=== PATIENT | male | born 1955 | race Two or more races ===

== ENCOUNTER 2016-04-22 11:24 | Outpatient (CLI) | payer MEDICARE | END 2016-04-22 23:59 | disposition home or self-care (01) | LOC: WOU 11:24 | PROVIDERS: ATTEND Podiatrist Foot & Ankle Surgery | DX: E11.610 Type 2 diabetes mellitus with diabetic neuropathic arthropathy (principal); B35.1 Tinea unguium; L85.3 Xerosis cutis; E11.42 Type 2 diabetes mellitus with diabetic polyneuropathy; I10 Essential (primary) hypertension; M20.42 Other hammer toe(s) (acquired), left foot; B35.3 Tinea pedis | CPT/HCPCS: G0463 ==

== ENCOUNTER 2016-07-27 11:00 | Outpatient (CLI) | payer MEDICARE | END 2016-07-27 23:59 | disposition home or self-care (01) | LOC: WOU 11:00 | PROVIDERS: ATTEND Podiatrist Foot & Ankle Surgery | DX: E11.610 Type 2 diabetes mellitus with diabetic neuropathic arthropathy (principal); E11.42 Type 2 diabetes mellitus with diabetic polyneuropathy; L84 Corns and callosities; B35.1 Tinea unguium; M20.42 Other hammer toe(s) (acquired), left foot; I10 Essential (primary) hypertension; S90.12 Contusion of lesser toe without damage to nail; X58.XXXD Exposure to other specified factors, subsequent encounter | CPT/HCPCS: A6402; G0463 ==

== ENCOUNTER 2016-12-07 10:06 | Outpatient (CLI) | payer MEDICARE | END 2016-12-07 23:59 | disposition home or self-care (01) | LOC: WOU 10:06 | PROVIDERS: ATTEND Podiatrist Foot & Ankle Surgery | DX: E11.621 Type 2 diabetes mellitus with foot ulcer (principal); L97.413 Non-pressure chronic ulcer of right heel and midfoot with necrosis of muscle; E11.610 Type 2 diabetes mellitus with diabetic neuropathic arthropathy; E11.42 Type 2 diabetes mellitus with diabetic polyneuropathy; L03.115 Cellulitis of right lower limb; Z87.891 Personal history of nicotine dependence; I10 Essential (primary) hypertension; Z79.899 Other long term (current) drug therapy; M20.42 Other hammer toe(s) (acquired), left foot; R60.0 Localized edema | CPT/HCPCS: 11043; 87070; 87075; 87077; A6209 ×2; A6402 ==

== ENCOUNTER 2016-12-30 10:30 | Outpatient (CLI) | payer MEDICARE | END 2016-12-30 23:59 | disposition home or self-care (01) | LOC: WOU 10:30 | PROVIDERS: ATTEND Podiatrist Foot & Ankle Surgery | DX: E11.621 Type 2 diabetes mellitus with foot ulcer (principal); E11.610 Type 2 diabetes mellitus with diabetic neuropathic arthropathy; E11.42 Type 2 diabetes mellitus with diabetic polyneuropathy; L97.411 Non-pressure chronic ulcer of right heel and midfoot limited to breakdown of skin; R60.0 Localized edema; M20.42 Other hammer toe(s) (acquired), left foot | CPT/HCPCS: 11042; A6209; A6402 ==

== ENCOUNTER 2017-01-04 11:15 | Outpatient (CLI) | payer MEDICARE | END 2017-01-04 23:59 | disposition home or self-care (01) | LOC: WOU 11:15 | PROVIDERS: ATTEND Podiatrist Foot & Ankle Surgery | DX: E11.621 Type 2 diabetes mellitus with foot ulcer (principal); L97.411 Non-pressure chronic ulcer of right heel and midfoot limited to breakdown of skin; E11.610 Type 2 diabetes mellitus with diabetic neuropathic arthropathy; E11.42 Type 2 diabetes mellitus with diabetic polyneuropathy; M20.42 Other hammer toe(s) (acquired), left foot; B35.3 Tinea pedis; B35.1 Tinea unguium | CPT/HCPCS: 11042; A6402; A6209 ==

== ENCOUNTER 2017-01-20 10:45 | Outpatient (CLI) | payer MEDICARE | END 2017-01-20 23:59 | disposition home or self-care (01) | LOC: WOU 10:45 | PROVIDERS: ATTEND Podiatrist Foot & Ankle Surgery | DX: E11.621 Type 2 diabetes mellitus with foot ulcer (principal); E11.610 Type 2 diabetes mellitus with diabetic neuropathic arthropathy; E11.42 Type 2 diabetes mellitus with diabetic polyneuropathy; L97.412 Non-pressure chronic ulcer of right heel and midfoot with fat layer exposed; R60.0 Localized edema; M20.42 Other hammer toe(s) (acquired), left foot; Z79.899 Other long term (current) drug therapy | CPT/HCPCS: 11042; A6402 ==

== ENCOUNTER 2017-01-25 10:40 | Outpatient (CLI) | payer MEDICARE | END 2017-01-25 23:59 | disposition home or self-care (01) | LOC: WOU 10:40 | PROVIDERS: ATTEND Podiatrist Foot & Ankle Surgery | DX: E11.621 Type 2 diabetes mellitus with foot ulcer (principal); L97.412 Non-pressure chronic ulcer of right heel and midfoot with fat layer exposed; E11.42 Type 2 diabetes mellitus with diabetic polyneuropathy; E11.610 Type 2 diabetes mellitus with diabetic neuropathic arthropathy; M20.42 Other hammer toe(s) (acquired), left foot | CPT/HCPCS: 11042; A6402 ==

== ENCOUNTER 2017-02-01 11:42 | Outpatient (CLI) | payer MEDICARE | END 2017-02-01 23:59 | disposition home or self-care (01) | LOC: WOU 11:42 | PROVIDERS: ATTEND Podiatrist Foot & Ankle Surgery | DX: E11.621 Type 2 diabetes mellitus with foot ulcer (principal); E11.610 Type 2 diabetes mellitus with diabetic neuropathic arthropathy; E11.42 Type 2 diabetes mellitus with diabetic polyneuropathy; L97.412 Non-pressure chronic ulcer of right heel and midfoot with fat layer exposed; I10 Essential (primary) hypertension; M20.42 Other hammer toe(s) (acquired), left foot | CPT/HCPCS: 15275; A6402 ==

== ENCOUNTER 2017-02-15 11:15 | Outpatient (CLI) | payer MEDICARE | END 2017-02-15 23:59 | disposition home or self-care (01) | LOC: WOU 11:15 | PROVIDERS: ATTEND Podiatrist Foot & Ankle Surgery | DX: E11.621 Type 2 diabetes mellitus with foot ulcer (principal); L97.412 Non-pressure chronic ulcer of right heel and midfoot with fat layer exposed; E11.610 Type 2 diabetes mellitus with diabetic neuropathic arthropathy; E11.42 Type 2 diabetes mellitus with diabetic polyneuropathy; M20.42 Other hammer toe(s) (acquired), left foot; R60.0 Localized edema | CPT/HCPCS: 15275; A6402; Q4132 ==

== ENCOUNTER 2017-02-21 11:19 | Outpatient (CLI) | payer MEDICARE ==
[~2017-02-21 11:19] MED LIST: SILVER SULFADIAZINE CREAM 25 GM TUBE ONE
== END 2017-02-21 23:59 | disposition home or self-care (01) ==
LOC: WOU 11:19
PROVIDERS: ATTEND Podiatrist Foot & Ankle Surgery
DX: E11.621 Type 2 diabetes mellitus with foot ulcer (principal); L97.415 Non-pressure chronic ulcer of right heel and midfoot with muscle involvement without evidence of necrosis; E11.610 Type 2 diabetes mellitus with diabetic neuropathic arthropathy; E11.42 Type 2 diabetes mellitus with diabetic polyneuropathy; Z79.4 Long term (current) use of insulin
CPT/HCPCS: 11043; A6402

== ENCOUNTER 2017-03-07 11:00 | Outpatient (CLI) | payer MEDICARE | END 2017-03-07 23:59 | disposition home or self-care (01) | LOC: WOU 11:00 | PROVIDERS: ATTEND Podiatrist Foot & Ankle Surgery | DX: E11.621 Type 2 diabetes mellitus with foot ulcer (principal); L97.415 Non-pressure chronic ulcer of right heel and midfoot with muscle involvement without evidence of necrosis; E11.42 Type 2 diabetes mellitus with diabetic polyneuropathy; E11.610 Type 2 diabetes mellitus with diabetic neuropathic arthropathy; Z79.899 Other long term (current) drug therapy | CPT/HCPCS: 15275; A6402; Q4133 ×2 ==

== ENCOUNTER 2017-03-14 11:14 | Outpatient (CLI) | payer MEDICARE | END 2017-03-14 23:59 | disposition home or self-care (01) | LOC: WOU 11:14 | PROVIDERS: ATTEND Podiatrist Foot & Ankle Surgery | DX: E11.621 Type 2 diabetes mellitus with foot ulcer (principal); L97.415 Non-pressure chronic ulcer of right heel and midfoot with muscle involvement without evidence of necrosis; E11.42 Type 2 diabetes mellitus with diabetic polyneuropathy; E11.610 Type 2 diabetes mellitus with diabetic neuropathic arthropathy; M20.42 Other hammer toe(s) (acquired), left foot | CPT/HCPCS: 15275; A6402 ==

== ENCOUNTER 2017-03-21 11:35 | Outpatient (CLI) | payer MEDICARE | END 2017-03-21 23:59 | disposition home or self-care (01) | LOC: WOU 11:35 | PROVIDERS: ATTEND Podiatrist Foot & Ankle Surgery | DX: E11.621 Type 2 diabetes mellitus with foot ulcer (principal); L97.412 Non-pressure chronic ulcer of right heel and midfoot with fat layer exposed; E11.42 Type 2 diabetes mellitus with diabetic polyneuropathy; E11.610 Type 2 diabetes mellitus with diabetic neuropathic arthropathy | CPT/HCPCS: 11042; A6402 ==

== ENCOUNTER 2017-03-28 11:10 | Outpatient (CLI) | payer MEDICARE | END 2017-03-28 23:59 | disposition home or self-care (01) | LOC: WOU 11:10 | PROVIDERS: ATTEND Podiatrist Foot & Ankle Surgery | DX: E11.621 Type 2 diabetes mellitus with foot ulcer (principal); L97.412 Non-pressure chronic ulcer of right heel and midfoot with fat layer exposed; E11.610 Type 2 diabetes mellitus with diabetic neuropathic arthropathy; E11.42 Type 2 diabetes mellitus with diabetic polyneuropathy; M20.42 Other hammer toe(s) (acquired), left foot | CPT/HCPCS: 11042; A6402 ×2 ==

== ENCOUNTER 2017-04-04 11:00 | Outpatient (CLI) | payer MEDICARE | END 2017-04-04 23:59 | disposition home or self-care (01) | LOC: WOU 11:00 | PROVIDERS: ATTEND Specialist | DX: E11.621 Type 2 diabetes mellitus with foot ulcer (principal); L97.412 Non-pressure chronic ulcer of right heel and midfoot with fat layer exposed; E11.42 Type 2 diabetes mellitus with diabetic polyneuropathy; E11.610 Type 2 diabetes mellitus with diabetic neuropathic arthropathy; I10 Essential (primary) hypertension | CPT/HCPCS: A6402; G0463 ==

== ENCOUNTER 2017-04-18 11:23 | Outpatient (CLI) | payer MEDICARE | END 2017-04-18 23:59 | disposition home or self-care (01) | LOC: WOU 11:23 | PROVIDERS: ATTEND Specialist | DX: E11.610 Type 2 diabetes mellitus with diabetic neuropathic arthropathy (principal); E11.42 Type 2 diabetes mellitus with diabetic polyneuropathy; I10 Essential (primary) hypertension; Z86.31 Personal history of diabetic foot ulcer | CPT/HCPCS: A6402; G0463 ==

== ENCOUNTER 2017-05-02 11:00 | Outpatient (CLI) | payer MEDICARE | END 2017-05-02 23:59 | disposition home or self-care (01) | LOC: WOU 11:00 | PROVIDERS: ATTEND Podiatrist Foot & Ankle Surgery | DX: E11.610 Type 2 diabetes mellitus with diabetic neuropathic arthropathy (principal); L84 Corns and callosities; E11.42 Type 2 diabetes mellitus with diabetic polyneuropathy; Z86.31 Personal history of diabetic foot ulcer | CPT/HCPCS: G0463 ==

== ENCOUNTER 2017-08-08 10:35 | Outpatient (CLI) | payer MEDICARE | END 2017-08-08 23:59 | disposition home or self-care (01) | LOC: WOU 10:35 | PROVIDERS: ATTEND Podiatrist Foot & Ankle Surgery | DX: S90.31XA Contusion of right foot, initial encounter (principal); X58.XXXA Exposure to other specified factors, initial encounter; Y92.89 Other specified places as the place of occurrence of the external cause; E11.610 Type 2 diabetes mellitus with diabetic neuropathic arthropathy; E11.42 Type 2 diabetes mellitus with diabetic polyneuropathy; I10 Essential (primary) hypertension; Z87.891 Personal history of nicotine dependence; Z79.4 Long term (current) use of insulin | CPT/HCPCS: 10140; 87070-TC; 87186-TC; A6402; A6407; Z7610 ==

== ENCOUNTER 2017-08-15 11:31 | Outpatient (CLI) | payer MEDICARE | END 2017-08-15 23:59 | disposition home or self-care (01) | LOC: WOU 11:31 | PROVIDERS: ATTEND Podiatrist Foot & Ankle Surgery | DX: E11.621 Type 2 diabetes mellitus with foot ulcer (principal); L97.412 Non-pressure chronic ulcer of right heel and midfoot with fat layer exposed; E11.42 Type 2 diabetes mellitus with diabetic polyneuropathy; E11.610 Type 2 diabetes mellitus with diabetic neuropathic arthropathy; Z79.4 Long term (current) use of insulin | CPT/HCPCS: 11042; A6402; Z7610 ==

== ENCOUNTER 2017-08-22 11:15 | Outpatient (CLI) | payer MEDICARE | END 2017-08-22 23:59 | disposition home or self-care (01) | LOC: WOU 11:15 | PROVIDERS: ATTEND Podiatrist Foot & Ankle Surgery | DX: E11.621 Type 2 diabetes mellitus with foot ulcer (principal); L97.412 Non-pressure chronic ulcer of right heel and midfoot with fat layer exposed; S81.811A Laceration without foreign body, right lower leg, initial encounter; E11.42 Type 2 diabetes mellitus with diabetic polyneuropathy; E11.610 Type 2 diabetes mellitus with diabetic neuropathic arthropathy; Z79.4 Long term (current) use of insulin; W22.8XXA Striking against or struck by other objects, initial encounter; Y93.89 Activity, other specified; Y92.89 Other specified places as the place of occurrence of the external cause; Y99.9 Unspecified external cause status | CPT/HCPCS: 11042; A6402; Z7610 ==

== ENCOUNTER 2017-08-29 11:30 | Outpatient (CLI) | payer MEDICARE | END 2017-08-29 23:59 | disposition home or self-care (01) | LOC: WOU 11:30 | PROVIDERS: ATTEND Podiatrist Foot & Ankle Surgery | DX: L84 Corns and callosities (principal); E11.40 Type 2 diabetes mellitus with diabetic neuropathy, unspecified; E11.610 Type 2 diabetes mellitus with diabetic neuropathic arthropathy; Z79.4 Long term (current) use of insulin; L85.3 Xerosis cutis; Z86.31 Personal history of diabetic foot ulcer | CPT/HCPCS: A6402; G0463; Z7610 ==

== ENCOUNTER 2017-09-26 11:43 | Outpatient (CLI) | payer MEDICARE | END 2017-09-26 23:59 | disposition home or self-care (01) | LOC: WOU 11:43 | PROVIDERS: ATTEND Podiatrist Foot & Ankle Surgery | DX: L84 Corns and callosities (principal); E11.42 Type 2 diabetes mellitus with diabetic polyneuropathy; E11.610 Type 2 diabetes mellitus with diabetic neuropathic arthropathy; Z79.4 Long term (current) use of insulin | CPT/HCPCS: A6402; G0463 ==

== ENCOUNTER 2017-11-07 10:42 | Outpatient (CLI) | payer MEDICARE | END 2017-11-07 23:59 | disposition home or self-care (01) | LOC: WOU 10:42 | PROVIDERS: ATTEND Podiatrist Foot & Ankle Surgery | DX: L60.0 Ingrowing nail (principal); E11.621 Type 2 diabetes mellitus with foot ulcer; L97.518 Non-pressure chronic ulcer of other part of right foot with other specified severity; L03.031 Cellulitis of right toe; E11.610 Type 2 diabetes mellitus with diabetic neuropathic arthropathy; E11.42 Type 2 diabetes mellitus with diabetic polyneuropathy; B35.1 Tinea unguium; Z83.3 Family history of diabetes mellitus | CPT/HCPCS: 10060; 87070; 87077; 87186; A6402 ×2; 10140; 11730 ==

== ENCOUNTER 2018-05-09 13:35 | Outpatient (CLI) | payer MEDICARE | END 2018-05-09 23:59 | disposition home or self-care (01) | LOC: WOU 13:35 | PROVIDERS: ATTEND Podiatrist Foot & Ankle Surgery | DX: L02.611 Cutaneous abscess of right foot (principal); L60.1 Onycholysis; E11.42 Type 2 diabetes mellitus with diabetic polyneuropathy; E11.610 Type 2 diabetes mellitus with diabetic neuropathic arthropathy; S90.211A Contusion of right great toe with damage to nail, initial encounter; W22.8XXA Striking against or struck by other objects, initial encounter; Y92.89 Other specified places as the place of occurrence of the external cause; Z87.891 Personal history of nicotine dependence; Z79.4 Long term (current) use of insulin | CPT/HCPCS: 11730; 88304; 88311; 88312; A6402 ==

== ENCOUNTER 2018-05-15 11:45 | Outpatient (CLI) | payer MEDICARE | END 2018-05-15 23:59 | disposition home or self-care (01) | LOC: WOU 11:45 | PROVIDERS: ATTEND Podiatrist Foot & Ankle Surgery | DX: S81.811A Laceration without foreign body, right lower leg, initial encounter (principal); E11.42 Type 2 diabetes mellitus with diabetic polyneuropathy; L84 Corns and callosities; M20.41 Other hammer toe(s) (acquired), right foot; B35.1 Tinea unguium; R60.0 Localized edema; Z86.31 Personal history of diabetic foot ulcer; Z79.4 Long term (current) use of insulin; W22.8XXA Striking against or struck by other objects, initial encounter; Y92.89 Other specified places as the place of occurrence of the external cause | CPT/HCPCS: 11042; A6402 ==

== ENCOUNTER 2018-05-29 11:00 | Outpatient (CLI) | payer MEDICARE | END 2018-05-29 23:59 | disposition home or self-care (01) | LOC: WOU 11:00 | PROVIDERS: ATTEND Podiatrist Foot & Ankle Surgery | DX: S81.811D Laceration without foreign body, right lower leg, subsequent encounter (principal); X58.XXXD Exposure to other specified factors, subsequent encounter; E11.610 Type 2 diabetes mellitus with diabetic neuropathic arthropathy; E11.42 Type 2 diabetes mellitus with diabetic polyneuropathy; Z79.4 Long term (current) use of insulin; L84 Corns and callosities; M20.41 Other hammer toe(s) (acquired), right foot | CPT/HCPCS: G0463 ==

== ENCOUNTER 2019-07-16 10:30 | Outpatient (CLI) | payer MEDICARE | END 2019-07-16 23:59 | disposition home or self-care (01) | LOC: WOU 10:30 | PROVIDERS: ATTEND Podiatrist Foot & Ankle Surgery | DX: E11.621 Type 2 diabetes mellitus with foot ulcer (principal); L97.412 Non-pressure chronic ulcer of right heel and midfoot with fat layer exposed; E11.42 Type 2 diabetes mellitus with diabetic polyneuropathy; E11.610 Type 2 diabetes mellitus with diabetic neuropathic arthropathy; Z79.4 Long term (current) use of insulin; M20.41 Other hammer toe(s) (acquired), right foot | CPT/HCPCS: 11042; A6209 ==

== ENCOUNTER 2019-07-23 10:05 | Outpatient (CLI) | payer MEDICARE | END 2019-07-23 23:59 | disposition home or self-care (01) | LOC: WOU 10:05 | PROVIDERS: ATTEND Podiatrist Foot & Ankle Surgery | DX: E11.610 Type 2 diabetes mellitus with diabetic neuropathic arthropathy (principal); E11.42 Type 2 diabetes mellitus with diabetic polyneuropathy; Z79.4 Long term (current) use of insulin; M20.41 Other hammer toe(s) (acquired), right foot | CPT/HCPCS: G0463 ==

== ENCOUNTER 2019-08-06 10:45 | Outpatient (CLI) | payer MEDICARE | END 2019-08-06 23:59 | disposition home or self-care (01) | LOC: WOU 10:45 | PROVIDERS: ATTEND Podiatrist Foot & Ankle Surgery | DX: E11.621 Type 2 diabetes mellitus with foot ulcer (principal); L97.422 Non-pressure chronic ulcer of left heel and midfoot with fat layer exposed; E11.42 Type 2 diabetes mellitus with diabetic polyneuropathy; E11.610 Type 2 diabetes mellitus with diabetic neuropathic arthropathy; Z79.4 Long term (current) use of insulin; M20.41 Other hammer toe(s) (acquired), right foot; L84 Corns and callosities | CPT/HCPCS: 11042; A6209 ==

== ENCOUNTER 2019-08-13 09:55 | Outpatient (CLI) | payer MEDICARE | END 2019-08-13 23:59 | disposition home or self-care (01) | LOC: WOU 09:55 | PROVIDERS: ATTEND Podiatrist Foot & Ankle Surgery | DX: E11.42 Type 2 diabetes mellitus with diabetic polyneuropathy (principal); E11.610 Type 2 diabetes mellitus with diabetic neuropathic arthropathy; L84 Corns and callosities; M20.41 Other hammer toe(s) (acquired), right foot; Z79.4 Long term (current) use of insulin | CPT/HCPCS: G0463 ==

== ENCOUNTER 2019-12-03 11:20 | Outpatient (CLI) | payer MEDICARE ==
[2019-12-03 12:36] LABS: BASOPHILS # (AUTO) 0.1 /CMM (0.0-0.2); BASOPHILS % (AUTO) 0.7 % (0.0-2.0); EOSINOPHILS % (AUTO) 0.3 % (0.0-6.0); HEMATOCRIT 38 % (39-51); HEMOGLOBIN 12.4 g/dL (13.5-17.5); LYMPHOCYTES # (AUTO) 1.4 /CMM (0.8-4.8); LYMPHOCYTES % (AUTO) 13.6 % (20.0-44.0); MEAN CORPUSCULAR HGB CONC 33 g/dl (31.0-36.0); MEAN CORPUSCULAR VOLUME 88 fL (80-96); MONOCYTES # (AUTO) 0.7 /CMM (0.1-1.30); MONOCYTES % (AUTO) 7.2 % (2.0-12.0); NEUTROPHILS % (AUTO) 78.2 % (43.0-81.0); PLATELET COUNT (AUTO) 272 /CMM (150-450); RED BLOOD CELL COUNT(AUTO) 4.31 MIL/uL (4.5-6.0); WHITE BLOOD COUNT (AUTO) 10.2 K/uL (4.3-11.0)
[2019-12-03] MEDS ORDERED: CEFTRIAXONE 1 G VIAL IM ONE (13:00)
[2019-12-03 16:46] LABS: BILIRUBIN,TOTAL 0.4 mg/dL (0.2-1.0); CALCIUM, SERUM 8.7 mg/dL (8.5-10.1); CREATININE 2.5 mg/dL (0.6-1.3); TOTAL PROTEIN, SERUM 7.4 g/dL (6.4-8.2)
== END 2019-12-03 23:59 | disposition home or self-care (01) ==
LOC: WOU 11:20
PROVIDERS: ATTEND Podiatrist Foot & Ankle Surgery
DX: E11.621 Type 2 diabetes mellitus with foot ulcer (principal); L97.415 Non-pressure chronic ulcer of right heel and midfoot with muscle involvement without evidence of necrosis; E11.42 Type 2 diabetes mellitus with diabetic polyneuropathy; E11.610 Type 2 diabetes mellitus with diabetic neuropathic arthropathy; Z79.4 Long term (current) use of insulin; L03.115 Cellulitis of right lower limb; L84 Corns and callosities; M20.41 Other hammer toe(s) (acquired), right foot
CPT/HCPCS: 11042; 36415; 80053; 82962; 83036; 84134; 85025; 85652; 87070; 87075; 96372; A6407; J0696

== ENCOUNTER 2019-12-06 10:35 | Outpatient (CLI) | payer MEDICARE | END 2019-12-06 23:59 | disposition home or self-care (01) | LOC: WOU 10:35 | PROVIDERS: ATTEND Podiatrist Foot & Ankle Surgery | DX: E11.621 Type 2 diabetes mellitus with foot ulcer (principal); L97.415 Non-pressure chronic ulcer of right heel and midfoot with muscle involvement without evidence of necrosis; E11.610 Type 2 diabetes mellitus with diabetic neuropathic arthropathy; E11.42 Type 2 diabetes mellitus with diabetic polyneuropathy; Z79.4 Long term (current) use of insulin; L03.115 Cellulitis of right lower limb; B95.61 Methicillin susceptible Staphylococcus aureus infection as the cause of diseases classified elsewhere; M20.41 Other hammer toe(s) (acquired), right foot | CPT/HCPCS: 11043; A6407 ==

== ENCOUNTER 2019-12-10 11:30 | Outpatient (CLI) | payer MEDICARE | END 2019-12-10 23:59 | disposition home or self-care (01) | LOC: WOU 11:30 | PROVIDERS: ATTEND Podiatrist Foot & Ankle Surgery | DX: E11.621 Type 2 diabetes mellitus with foot ulcer (principal); L97.415 Non-pressure chronic ulcer of right heel and midfoot with muscle involvement without evidence of necrosis; E11.42 Type 2 diabetes mellitus with diabetic polyneuropathy; E11.610 Type 2 diabetes mellitus with diabetic neuropathic arthropathy; Z79.4 Long term (current) use of insulin; L03.115 Cellulitis of right lower limb; L60.0 Ingrowing nail; M20.41 Other hammer toe(s) (acquired), right foot; R60.0 Localized edema; Z20.828 Contact with and (suspected) exposure to other viral communicable diseases | CPT/HCPCS: 11043; A6407; C9803; U0003; G0277 ==

== ENCOUNTER 2019-12-13 11:40 | Outpatient (CLI) | payer MEDICARE | END 2019-12-13 23:59 | disposition home or self-care (01) | LOC: WOU 11:40 | PROVIDERS: ATTEND Podiatrist Foot & Ankle Surgery | DX: E11.621 Type 2 diabetes mellitus with foot ulcer (principal); L97.412 Non-pressure chronic ulcer of right heel and midfoot with fat layer exposed; L97.415 Non-pressure chronic ulcer of right heel and midfoot with muscle involvement without evidence of necrosis; E11.610 Type 2 diabetes mellitus with diabetic neuropathic arthropathy; E11.42 Type 2 diabetes mellitus with diabetic polyneuropathy; Z79.4 Long term (current) use of insulin; L03.115 Cellulitis of right lower limb; L84 Corns and callosities | CPT/HCPCS: 11042; 11043; A6407; A6209 ==

== ENCOUNTER 2019-12-17 11:40 | Outpatient (CLI) | payer MEDICARE | END 2019-12-17 23:59 | disposition home or self-care (01) | LOC: WOU 11:40 | PROVIDERS: ATTEND Podiatrist Foot & Ankle Surgery | DX: E11.621 Type 2 diabetes mellitus with foot ulcer (principal); L97.415 Non-pressure chronic ulcer of right heel and midfoot with muscle involvement without evidence of necrosis; E11.42 Type 2 diabetes mellitus with diabetic polyneuropathy; E11.610 Type 2 diabetes mellitus with diabetic neuropathic arthropathy; Z79.4 Long term (current) use of insulin; L03.115 Cellulitis of right lower limb; L84 Corns and callosities; M20.41 Other hammer toe(s) (acquired), right foot | CPT/HCPCS: 11043; A6407 ==

== ENCOUNTER 2019-12-18 12:10 | Outpatient (CLI) | payer MEDICARE | END 2019-12-18 23:59 | disposition home or self-care (01) | LOC: MRI 12:10 | PROVIDERS: ATTEND Podiatrist Foot & Ankle Surgery | DX: M19.071 Primary osteoarthritis, right ankle and foot (principal); M20.11 Hallux valgus (acquired), right foot; M21.41 Flat foot [pes planus] (acquired), right foot; M21.6X1 Other acquired deformities of right foot; L03.115 Cellulitis of right lower limb; L02.611 Cutaneous abscess of right foot; M62.571 Muscle wasting and atrophy, not elsewhere classified, right ankle and foot | CPT/HCPCS: 73718-TC ==

== ENCOUNTER 2019-12-24 11:50 | Outpatient (CLI) | payer MEDICARE ==
[2019-12-25] MEDS ORDERED: methylPREDNISolone ACETATE 80 MG/ML VIAL ONE (06:25)
== END 2019-12-24 23:59 | disposition home or self-care (01) ==
LOC: WOU 11:50
PROVIDERS: ATTEND Podiatrist Foot & Ankle Surgery
DX: E11.621 Type 2 diabetes mellitus with foot ulcer (principal); L97.415 Non-pressure chronic ulcer of right heel and midfoot with muscle involvement without evidence of necrosis; E11.42 Type 2 diabetes mellitus with diabetic polyneuropathy; E11.610 Type 2 diabetes mellitus with diabetic neuropathic arthropathy; Z79.4 Long term (current) use of insulin; L03.115 Cellulitis of right lower limb; L84 Corns and callosities
CPT/HCPCS: 11043; A6407; J1040

== ENCOUNTER 2019-12-25 10:30 | Outpatient (CLI) | payer MEDICARE ==
[2019-12-25] MEDS ORDERED: CADEXOMER IODINE UD 5 GM TUBE ONE (11:08)
== END 2019-12-25 23:59 | disposition home or self-care (01) ==
LOC: WOU 10:30
PROVIDERS: ATTEND Specialist
DX: E11.621 Type 2 diabetes mellitus with foot ulcer (principal); L97.415 Non-pressure chronic ulcer of right heel and midfoot with muscle involvement without evidence of necrosis; E11.42 Type 2 diabetes mellitus with diabetic polyneuropathy; E11.610 Type 2 diabetes mellitus with diabetic neuropathic arthropathy; L03.115 Cellulitis of right lower limb; M20.41 Other hammer toe(s) (acquired), right foot; L84 Corns and callosities; Z79.4 Long term (current) use of insulin
CPT/HCPCS: A6407; G0463

== ENCOUNTER 2019-12-31 11:00 | Outpatient (CLI) | payer MEDICARE | END 2019-12-31 23:59 | disposition home health service (06) | LOC: WOU 11:00 | PROVIDERS: ATTEND Podiatrist Foot & Ankle Surgery | DX: E11.621 Type 2 diabetes mellitus with foot ulcer (principal); L97.415 Non-pressure chronic ulcer of right heel and midfoot with muscle involvement without evidence of necrosis; E11.42 Type 2 diabetes mellitus with diabetic polyneuropathy; E11.610 Type 2 diabetes mellitus with diabetic neuropathic arthropathy; Z79.4 Long term (current) use of insulin; L03.115 Cellulitis of right lower limb; M20.41 Other hammer toe(s) (acquired), right foot; L84 Corns and callosities | CPT/HCPCS: 11043; 97605-TC ==

== ENCOUNTER 2020-01-07 11:00 | Outpatient (CLI) | payer MEDICARE | END 2020-01-07 23:59 | disposition home health service (06) | LOC: WOU 11:00 | PROVIDERS: ATTEND Podiatrist Foot & Ankle Surgery | DX: E11.621 Type 2 diabetes mellitus with foot ulcer (principal); L97.415 Non-pressure chronic ulcer of right heel and midfoot with muscle involvement without evidence of necrosis; E11.610 Type 2 diabetes mellitus with diabetic neuropathic arthropathy; Z79.4 Long term (current) use of insulin; L03.116 Cellulitis of left lower limb; M20.41 Other hammer toe(s) (acquired), right foot; L84 Corns and callosities | CPT/HCPCS: 11043; 97605-TC ==

== ENCOUNTER 2020-01-14 10:55 | Outpatient (CLI) | payer MEDICARE | END 2020-01-14 23:59 | disposition home health service (06) | LOC: WOU 10:55 | PROVIDERS: ATTEND Podiatrist Foot & Ankle Surgery | DX: E11.621 Type 2 diabetes mellitus with foot ulcer (principal); L97.415 Non-pressure chronic ulcer of right heel and midfoot with muscle involvement without evidence of necrosis; E11.42 Type 2 diabetes mellitus with diabetic polyneuropathy; E11.610 Type 2 diabetes mellitus with diabetic neuropathic arthropathy; M20.41 Other hammer toe(s) (acquired), right foot; L84 Corns and callosities; Z79.4 Long term (current) use of insulin | CPT/HCPCS: 11043; 97605-TC ==

== ENCOUNTER 2020-01-28 11:00 | Outpatient (CLI) | payer MEDICARE | END 2020-01-28 23:59 | disposition home health service (06) | LOC: WOU 11:00 | PROVIDERS: ATTEND Podiatrist Foot & Ankle Surgery | DX: E11.621 Type 2 diabetes mellitus with foot ulcer (principal); L97.412 Non-pressure chronic ulcer of right heel and midfoot with fat layer exposed; E11.42 Type 2 diabetes mellitus with diabetic polyneuropathy; E11.610 Type 2 diabetes mellitus with diabetic neuropathic arthropathy; Z79.4 Long term (current) use of insulin; M20.41 Other hammer toe(s) (acquired), right foot | CPT/HCPCS: 11042; 97605-TC ==

== ENCOUNTER 2020-02-04 11:00 | Outpatient (CLI) | payer MEDICARE | END 2020-02-04 23:59 | disposition home health service (06) | LOC: WOU 11:00 | PROVIDERS: ATTEND Podiatrist Foot & Ankle Surgery | DX: E11.621 Type 2 diabetes mellitus with foot ulcer (principal); L97.412 Non-pressure chronic ulcer of right heel and midfoot with fat layer exposed; E11.610 Type 2 diabetes mellitus with diabetic neuropathic arthropathy; E11.42 Type 2 diabetes mellitus with diabetic polyneuropathy; Z79.4 Long term (current) use of insulin; L03.115 Cellulitis of right lower limb; M20.41 Other hammer toe(s) (acquired), right foot; L84 Corns and callosities | CPT/HCPCS: 11042; 97605-TC ==

== ENCOUNTER 2020-02-11 11:15 | Outpatient (CLI) | payer MEDICARE | END 2020-02-11 23:59 | disposition home health service (06) | LOC: WOU 11:15 | PROVIDERS: ATTEND Podiatrist Foot & Ankle Surgery | DX: E11.621 Type 2 diabetes mellitus with foot ulcer (principal); L97.412 Non-pressure chronic ulcer of right heel and midfoot with fat layer exposed; E11.42 Type 2 diabetes mellitus with diabetic polyneuropathy; E11.610 Type 2 diabetes mellitus with diabetic neuropathic arthropathy; Z79.4 Long term (current) use of insulin; L84 Corns and callosities; M20.41 Other hammer toe(s) (acquired), right foot | CPT/HCPCS: 11042 ==

== ENCOUNTER 2020-02-19 14:00 | Outpatient (CLI) | payer MEDICARE | END 2020-02-19 23:59 | disposition home health service (06) | LOC: WOU 14:00 | PROVIDERS: ATTEND Podiatrist Foot & Ankle Surgery | DX: E11.621 Type 2 diabetes mellitus with foot ulcer (principal); L97.415 Non-pressure chronic ulcer of right heel and midfoot with muscle involvement without evidence of necrosis; L97.413 Non-pressure chronic ulcer of right heel and midfoot with necrosis of muscle; L03.115 Cellulitis of right lower limb; E11.610 Type 2 diabetes mellitus with diabetic neuropathic arthropathy; E11.42 Type 2 diabetes mellitus with diabetic polyneuropathy; M20.41 Other hammer toe(s) (acquired), right foot; L84 Corns and callosities; I10 Essential (primary) hypertension; Z87.891 Personal history of nicotine dependence; Z79.4 Long term (current) use of insulin | CPT/HCPCS: 11043; 36415; 83036; 85652; 86140; 87070; 87077; A6407 ==

== ENCOUNTER 2020-02-25 11:00 | Outpatient (CLI) | payer MEDICARE | END 2020-02-25 23:59 | disposition home health service (06) | LOC: WOU 11:00 | PROVIDERS: ATTEND Podiatrist Foot & Ankle Surgery | DX: E11.621 Type 2 diabetes mellitus with foot ulcer (principal); L97.415 Non-pressure chronic ulcer of right heel and midfoot with muscle involvement without evidence of necrosis; L97.413 Non-pressure chronic ulcer of right heel and midfoot with necrosis of muscle; E11.610 Type 2 diabetes mellitus with diabetic neuropathic arthropathy; E11.42 Type 2 diabetes mellitus with diabetic polyneuropathy; Z79.4 Long term (current) use of insulin; L03.116 Cellulitis of left lower limb; L84 Corns and callosities | CPT/HCPCS: 11043; A6407 ==

== ENCOUNTER 2020-03-03 11:00 | Outpatient (CLI) | payer MEDICARE | END 2020-03-03 23:59 | disposition home health service (06) | LOC: WOU 11:00 | PROVIDERS: ATTEND Podiatrist Foot & Ankle Surgery | DX: E11.621 Type 2 diabetes mellitus with foot ulcer (principal); L97.415 Non-pressure chronic ulcer of right heel and midfoot with muscle involvement without evidence of necrosis; L97.413 Non-pressure chronic ulcer of right heel and midfoot with necrosis of muscle; L03.115 Cellulitis of right lower limb; E11.42 Type 2 diabetes mellitus with diabetic polyneuropathy; E11.610 Type 2 diabetes mellitus with diabetic neuropathic arthropathy; Z79.4 Long term (current) use of insulin; M20.41 Other hammer toe(s) (acquired), right foot; L84 Corns and callosities | CPT/HCPCS: 11043; 87070; A6407 ×2 ==

== ENCOUNTER 2020-03-06 11:00 | Outpatient (CLI) | payer MEDICARE | END 2020-03-06 23:59 | disposition home health service (06) | LOC: WOU 11:00 | PROVIDERS: ATTEND Podiatrist Foot & Ankle Surgery | DX: E11.621 Type 2 diabetes mellitus with foot ulcer (principal); L97.415 Non-pressure chronic ulcer of right heel and midfoot with muscle involvement without evidence of necrosis; L97.413 Non-pressure chronic ulcer of right heel and midfoot with necrosis of muscle; E11.42 Type 2 diabetes mellitus with diabetic polyneuropathy; E11.610 Type 2 diabetes mellitus with diabetic neuropathic arthropathy; Z79.4 Long term (current) use of insulin; L03.115 Cellulitis of right lower limb; M20.41 Other hammer toe(s) (acquired), right foot; L84 Corns and callosities | CPT/HCPCS: 11043; 97605-TC ==

== ENCOUNTER 2020-03-10 11:05 | Outpatient (CLI) | payer MEDICARE | END 2020-03-10 23:59 | disposition home health service (06) | LOC: WOU 11:05 | PROVIDERS: ATTEND Podiatrist Foot & Ankle Surgery | DX: E11.621 Type 2 diabetes mellitus with foot ulcer (principal); L97.515 Non-pressure chronic ulcer of other part of right foot with muscle involvement without evidence of necrosis; L97.513 Non-pressure chronic ulcer of other part of right foot with necrosis of muscle; L03.115 Cellulitis of right lower limb; E11.42 Type 2 diabetes mellitus with diabetic polyneuropathy; E11.610 Type 2 diabetes mellitus with diabetic neuropathic arthropathy; Z79.4 Long term (current) use of insulin; M20.41 Other hammer toe(s) (acquired), right foot; L84 Corns and callosities | CPT/HCPCS: 11043; 87070-TC; 87075-TC; 87186-TC; 97605-TC ==

== ENCOUNTER 2020-03-10 12:11 | Outpatient (CLI) | payer MEDICARE | END 2020-03-10 23:59 | disposition home or self-care (01) | LOC: WOU 12:11 → RAD 23:59 | PROVIDERS: ATTEND Specialist | DX: R05 Cough (principal) | CPT/HCPCS: 71046 ==

== ENCOUNTER 2020-03-11 12:30 | Outpatient (CLI) | payer MEDICARE | END 2020-03-11 23:59 | disposition home or self-care (01) | LOC: WOU 12:30 | PROVIDERS: ATTEND Specialist | DX: E11.621 Type 2 diabetes mellitus with foot ulcer (principal); L97.415 Non-pressure chronic ulcer of right heel and midfoot with muscle involvement without evidence of necrosis; E11.42 Type 2 diabetes mellitus with diabetic polyneuropathy; E11.610 Type 2 diabetes mellitus with diabetic neuropathic arthropathy; Z79.4 Long term (current) use of insulin | CPT/HCPCS: G0463 ==

== ENCOUNTER 2020-03-13 08:05 | Outpatient (CLI) | payer MEDICARE | END 2020-03-13 23:59 | disposition home health service (06) | LOC: WOU 08:05 | PROVIDERS: ATTEND Podiatrist Foot & Ankle Surgery | DX: E11.621 Type 2 diabetes mellitus with foot ulcer (principal); L97.415 Non-pressure chronic ulcer of right heel and midfoot with muscle involvement without evidence of necrosis; L97.413 Non-pressure chronic ulcer of right heel and midfoot with necrosis of muscle; E11.610 Type 2 diabetes mellitus with diabetic neuropathic arthropathy; E11.42 Type 2 diabetes mellitus with diabetic polyneuropathy; Z79.4 Long term (current) use of insulin; L03.115 Cellulitis of right lower limb; M20.41 Other hammer toe(s) (acquired), right foot; L84 Corns and callosities; I10 Essential (primary) hypertension | CPT/HCPCS: 11043; 97605-TC ==

== ENCOUNTER 2020-03-17 09:55 | Outpatient (CLI) | payer MEDICARE | END 2020-03-17 23:59 | disposition home health service (06) | LOC: WOU 09:55 | PROVIDERS: ATTEND Podiatrist Foot & Ankle Surgery | DX: E11.621 Type 2 diabetes mellitus with foot ulcer (principal); L97.415 Non-pressure chronic ulcer of right heel and midfoot with muscle involvement without evidence of necrosis; L97.413 Non-pressure chronic ulcer of right heel and midfoot with necrosis of muscle; E11.610 Type 2 diabetes mellitus with diabetic neuropathic arthropathy; E11.42 Type 2 diabetes mellitus with diabetic polyneuropathy; Z79.4 Long term (current) use of insulin; L03.115 Cellulitis of right lower limb; L84 Corns and callosities; M20.41 Other hammer toe(s) (acquired), right foot | CPT/HCPCS: 11043; A6407 ==

== ENCOUNTER 2020-03-20 12:58 | Outpatient (CLI) | payer MEDICARE | END 2020-03-20 23:59 | disposition home health service (06) | LOC: WOU 12:58 | PROVIDERS: ATTEND Podiatrist Foot & Ankle Surgery | DX: E11.621 Type 2 diabetes mellitus with foot ulcer (principal); L97.415 Non-pressure chronic ulcer of right heel and midfoot with muscle involvement without evidence of necrosis; L97.413 Non-pressure chronic ulcer of right heel and midfoot with necrosis of muscle; E11.42 Type 2 diabetes mellitus with diabetic polyneuropathy; E11.610 Type 2 diabetes mellitus with diabetic neuropathic arthropathy; Z79.4 Long term (current) use of insulin; M20.41 Other hammer toe(s) (acquired), right foot; L84 Corns and callosities; I10 Essential (primary) hypertension | CPT/HCPCS: 11043 ==

== ENCOUNTER 2020-03-24 09:15 | Outpatient (CLI) | payer MEDICARE ==
[2020-03-24] MEDS ORDERED: CLOTRIMAZOLE 1% 15 GM TUBE TP ONE (09:25)
== END 2020-03-24 23:59 | disposition home health service (06) ==
LOC: WOU 09:15
PROVIDERS: ATTEND Podiatrist Foot & Ankle Surgery
DX: E11.621 Type 2 diabetes mellitus with foot ulcer (principal); L97.415 Non-pressure chronic ulcer of right heel and midfoot with muscle involvement without evidence of necrosis; E11.42 Type 2 diabetes mellitus with diabetic polyneuropathy; E11.610 Type 2 diabetes mellitus with diabetic neuropathic arthropathy; Z79.4 Long term (current) use of insulin; L84 Corns and callosities; I10 Essential (primary) hypertension
CPT/HCPCS: 11043; A6407

== ENCOUNTER 2020-03-31 08:37 | Outpatient (CLI) | payer MEDICARE ==
[2020-03-31] MEDS ORDERED: CLOTRIMAZOLE 1% 15 GM TUBE TP ONE (09:22)
== END 2020-03-31 23:59 | disposition home health service (06) ==
LOC: WOU 08:37
PROVIDERS: ATTEND Podiatrist Foot & Ankle Surgery
DX: E11.621 Type 2 diabetes mellitus with foot ulcer (principal); L97.413 Non-pressure chronic ulcer of right heel and midfoot with necrosis of muscle; E11.610 Type 2 diabetes mellitus with diabetic neuropathic arthropathy; E11.42 Type 2 diabetes mellitus with diabetic polyneuropathy; Z79.4 Long term (current) use of insulin; M20.41 Other hammer toe(s) (acquired), right foot; L84 Corns and callosities
CPT/HCPCS: 11043; 87070; A6407; 87186-TC

== ENCOUNTER 2020-04-02 12:32 | Outpatient (CLI) | payer MEDICARE | END 2020-04-02 23:59 | disposition home or self-care (01) | LOC: CARD 12:32 | PROVIDERS: ATTEND Podiatrist Foot & Ankle Surgery | DX: I70.203 Unspecified atherosclerosis of native arteries of extremities, bilateral legs (principal); L97.509 Non-pressure chronic ulcer of other part of unspecified foot with unspecified severity ==

== ENCOUNTER 2020-04-07 11:15 | Outpatient (CLI) | payer MEDICARE | END 2020-04-07 23:59 | disposition home health service (06) | LOC: WOU 11:15 | PROVIDERS: ATTEND Podiatrist Foot & Ankle Surgery | DX: E11.621 Type 2 diabetes mellitus with foot ulcer (principal); L97.413 Non-pressure chronic ulcer of right heel and midfoot with necrosis of muscle; E11.42 Type 2 diabetes mellitus with diabetic polyneuropathy; E11.610 Type 2 diabetes mellitus with diabetic neuropathic arthropathy; L84 Corns and callosities; I10 Essential (primary) hypertension; Z79.4 Long term (current) use of insulin; M20.41 Other hammer toe(s) (acquired), right foot | CPT/HCPCS: 11043; 97605-TC ==

== ENCOUNTER 2020-04-14 11:25 | Outpatient (CLI) | payer MEDICARE | END 2020-04-14 23:59 | disposition home health service (06) | LOC: WOU 11:25 | PROVIDERS: ATTEND Podiatrist Foot & Ankle Surgery | DX: E11.621 Type 2 diabetes mellitus with foot ulcer (principal); L97.413 Non-pressure chronic ulcer of right heel and midfoot with necrosis of muscle; E11.610 Type 2 diabetes mellitus with diabetic neuropathic arthropathy; E11.42 Type 2 diabetes mellitus with diabetic polyneuropathy; Z79.4 Long term (current) use of insulin; M20.41 Other hammer toe(s) (acquired), right foot; L84 Corns and callosities | CPT/HCPCS: 11043; 97605-TC ==

== ENCOUNTER 2020-04-24 08:10 | Outpatient (CLI) | payer MEDICARE | END 2020-04-24 23:59 | disposition home health service (06) | LOC: WOU 08:10 | PROVIDERS: ATTEND Podiatrist Foot & Ankle Surgery | DX: E11.621 Type 2 diabetes mellitus with foot ulcer (principal); L97.413 Non-pressure chronic ulcer of right heel and midfoot with necrosis of muscle; E11.42 Type 2 diabetes mellitus with diabetic polyneuropathy; E11.610 Type 2 diabetes mellitus with diabetic neuropathic arthropathy; Z79.4 Long term (current) use of insulin; L84 Corns and callosities; M20.41 Other hammer toe(s) (acquired), right foot | CPT/HCPCS: 11043; 97605-TC ==

== ENCOUNTER 2020-04-28 11:20 | Outpatient (CLI) | payer MEDICARE | END 2020-04-28 23:59 | disposition home health service (06) | LOC: WOU 11:20 | PROVIDERS: ATTEND Podiatrist Foot & Ankle Surgery | DX: E11.621 Type 2 diabetes mellitus with foot ulcer (principal); L97.413 Non-pressure chronic ulcer of right heel and midfoot with necrosis of muscle; E11.610 Type 2 diabetes mellitus with diabetic neuropathic arthropathy; E11.42 Type 2 diabetes mellitus with diabetic polyneuropathy; Z79.4 Long term (current) use of insulin; L84 Corns and callosities; M20.41 Other hammer toe(s) (acquired), right foot | CPT/HCPCS: 11042; 97605-TC ==

== ENCOUNTER 2020-04-29 14:00 | Outpatient (CLI) | payer MEDICARE | END 2020-04-29 23:59 | disposition home health service (06) | LOC: WOU 14:00 | PROVIDERS: ATTEND Podiatrist Foot & Ankle Surgery | DX: S90.512A Abrasion, left ankle, initial encounter (principal); X58.XXXA Exposure to other specified factors, initial encounter; Y92.89 Other specified places as the place of occurrence of the external cause; L03.116 Cellulitis of left lower limb; I80.02 Phlebitis and thrombophlebitis of superficial vessels of left lower extremity; E11.610 Type 2 diabetes mellitus with diabetic neuropathic arthropathy; E11.42 Type 2 diabetes mellitus with diabetic polyneuropathy; Z79.4 Long term (current) use of insulin; M20.41 Other hammer toe(s) (acquired), right foot; L84 Corns and callosities; M79.672 Pain in left foot | CPT/HCPCS: A6209; G0463; 87070-TC ==

== ENCOUNTER 2020-05-01 11:00 | Outpatient (CLI) | payer MEDICARE | END 2020-05-01 23:59 | disposition home health service (06) | LOC: WOU 11:00 | PROVIDERS: ATTEND Podiatrist Foot & Ankle Surgery | DX: E11.621 Type 2 diabetes mellitus with foot ulcer (principal); L97.413 Non-pressure chronic ulcer of right heel and midfoot with necrosis of muscle; E11.42 Type 2 diabetes mellitus with diabetic polyneuropathy; E11.610 Type 2 diabetes mellitus with diabetic neuropathic arthropathy; Z79.4 Long term (current) use of insulin; S90.512D Abrasion, left ankle, subsequent encounter; X58.XXXD Exposure to other specified factors, subsequent encounter; M20.41 Other hammer toe(s) (acquired), right foot; L84 Corns and callosities; I10 Essential (primary) hypertension; Z87.891 Personal history of nicotine dependence | CPT/HCPCS: 15275; A6209; Q4186 ==

== ENCOUNTER 2020-05-08 11:20 | Outpatient (CLI) | payer MEDICARE ==
[2020-05-08] MEDS ORDERED: MUPIROCIN 2% CREAM 15 GM TUBE TP ONE (11:39)
== END 2020-05-08 23:59 | disposition home health service (06) ==
LOC: WOU 11:20
PROVIDERS: ATTEND Podiatrist Foot & Ankle Surgery
DX: E11.621 Type 2 diabetes mellitus with foot ulcer (principal); L97.412 Non-pressure chronic ulcer of right heel and midfoot with fat layer exposed; E11.610 Type 2 diabetes mellitus with diabetic neuropathic arthropathy; E11.42 Type 2 diabetes mellitus with diabetic polyneuropathy; Z79.4 Long term (current) use of insulin; L84 Corns and callosities; M20.41 Other hammer toe(s) (acquired), right foot
CPT/HCPCS: 11042

== ENCOUNTER 2020-05-15 11:00 | Outpatient (CLI) | payer MEDICARE ==
[2020-05-15] MEDS ORDERED: MUPIROCIN 2% CREAM 15 GM TUBE TP ONE (11:08)
== END 2020-05-15 23:59 | disposition home health service (06) ==
LOC: WOU 11:00
PROVIDERS: ATTEND Podiatrist Foot & Ankle Surgery
DX: E11.621 Type 2 diabetes mellitus with foot ulcer (principal); L97.412 Non-pressure chronic ulcer of right heel and midfoot with fat layer exposed; E11.42 Type 2 diabetes mellitus with diabetic polyneuropathy; E11.610 Type 2 diabetes mellitus with diabetic neuropathic arthropathy; Z79.4 Long term (current) use of insulin; M20.41 Other hammer toe(s) (acquired), right foot; L84 Corns and callosities
CPT/HCPCS: 11042

== ENCOUNTER 2020-06-16 09:50 | Outpatient (CLI) | payer MEDICARE | END 2020-06-16 23:59 | disposition home or self-care (01) | LOC: WOU 09:50 | PROVIDERS: ATTEND Podiatrist Foot & Ankle Surgery | DX: E11.621 Type 2 diabetes mellitus with foot ulcer (principal); L97.412 Non-pressure chronic ulcer of right heel and midfoot with fat layer exposed; E11.610 Type 2 diabetes mellitus with diabetic neuropathic arthropathy; E11.42 Type 2 diabetes mellitus with diabetic polyneuropathy; Z79.4 Long term (current) use of insulin; L84 Corns and callosities; M20.41 Other hammer toe(s) (acquired), right foot; Z87.891 Personal history of nicotine dependence | CPT/HCPCS: 11042; A6209 ==

== ENCOUNTER 2020-06-23 10:25 | Outpatient (CLI) | payer MEDICARE | END 2020-06-23 23:59 | disposition home or self-care (01) | LOC: WOU 10:25 | PROVIDERS: ATTEND Podiatrist Foot & Ankle Surgery | DX: E11.621 Type 2 diabetes mellitus with foot ulcer (principal); L97.412 Non-pressure chronic ulcer of right heel and midfoot with fat layer exposed; E11.610 Type 2 diabetes mellitus with diabetic neuropathic arthropathy; E11.42 Type 2 diabetes mellitus with diabetic polyneuropathy; Z79.4 Long term (current) use of insulin; L84 Corns and callosities; M20.41 Other hammer toe(s) (acquired), right foot | CPT/HCPCS: 11042 ==

== ENCOUNTER 2020-06-30 11:05 | Outpatient (CLI) | payer MEDICARE | END 2020-06-30 23:59 | disposition home or self-care (01) | LOC: WOU 11:05 | PROVIDERS: ATTEND Podiatrist Foot & Ankle Surgery | DX: E11.621 Type 2 diabetes mellitus with foot ulcer (principal); L97.418 Non-pressure chronic ulcer of right heel and midfoot with other specified severity; E11.42 Type 2 diabetes mellitus with diabetic polyneuropathy; E11.610 Type 2 diabetes mellitus with diabetic neuropathic arthropathy; Z79.4 Long term (current) use of insulin; L84 Corns and callosities; M20.41 Other hammer toe(s) (acquired), right foot | CPT/HCPCS: G0463 ==

== ENCOUNTER 2020-07-08 13:10 | Outpatient (CLI) | payer MEDICARE | END 2020-07-08 23:59 | disposition home or self-care (01) | LOC: WOU 13:10 | PROVIDERS: ATTEND Podiatrist Foot & Ankle Surgery | DX: E11.621 Type 2 diabetes mellitus with foot ulcer (principal); L97.418 Non-pressure chronic ulcer of right heel and midfoot with other specified severity; T81.31XA Disruption of external operation (surgical) wound, not elsewhere classified, initial encounter; E11.610 Type 2 diabetes mellitus with diabetic neuropathic arthropathy; E11.42 Type 2 diabetes mellitus with diabetic polyneuropathy; M20.41 Other hammer toe(s) (acquired), right foot; Z79.4 Long term (current) use of insulin | CPT/HCPCS: 11042 ==

== ENCOUNTER 2020-07-14 11:10 | Outpatient (CLI) | payer MEDICARE ==
[2020-07-14] MEDS ORDERED: UREA 10% -AHA 4% CREAM 57 GM TUBE ONE (11:54)
== END 2020-07-14 23:59 | disposition home or self-care (01) ==
LOC: WOU 11:10
PROVIDERS: ATTEND Podiatrist Foot & Ankle Surgery
DX: E11.621 Type 2 diabetes mellitus with foot ulcer (principal); L97.412 Non-pressure chronic ulcer of right heel and midfoot with fat layer exposed; E11.42 Type 2 diabetes mellitus with diabetic polyneuropathy; E11.610 Type 2 diabetes mellitus with diabetic neuropathic arthropathy; Z79.4 Long term (current) use of insulin; L84 Corns and callosities; M20.41 Other hammer toe(s) (acquired), right foot
CPT/HCPCS: 15275; Q4186

== ENCOUNTER 2020-07-21 11:05 | Outpatient (CLI) | payer MEDICARE | END 2020-07-21 23:59 | disposition home or self-care (01) | LOC: WOU 11:05 | PROVIDERS: ATTEND Podiatrist Foot & Ankle Surgery | DX: E11.621 Type 2 diabetes mellitus with foot ulcer (principal); L97.412 Non-pressure chronic ulcer of right heel and midfoot with fat layer exposed; E11.610 Type 2 diabetes mellitus with diabetic neuropathic arthropathy; E11.42 Type 2 diabetes mellitus with diabetic polyneuropathy; Z79.4 Long term (current) use of insulin; M20.41 Other hammer toe(s) (acquired), right foot; L84 Corns and callosities | CPT/HCPCS: 11042 ==

== ENCOUNTER 2020-07-28 11:20 | Outpatient (CLI) | payer MEDICARE | END 2020-07-28 23:59 | disposition home or self-care (01) | LOC: WOU 11:20 | PROVIDERS: ATTEND Podiatrist Foot & Ankle Surgery | DX: E11.621 Type 2 diabetes mellitus with foot ulcer (principal); L97.412 Non-pressure chronic ulcer of right heel and midfoot with fat layer exposed; E11.42 Type 2 diabetes mellitus with diabetic polyneuropathy; E11.610 Type 2 diabetes mellitus with diabetic neuropathic arthropathy; Z79.4 Long term (current) use of insulin; L84 Corns and callosities; M20.41 Other hammer toe(s) (acquired), right foot; I10 Essential (primary) hypertension | CPT/HCPCS: 11042; A6209 ==

== ENCOUNTER 2020-08-04 10:50 | Outpatient (CLI) | payer MEDICARE | END 2020-08-04 23:59 | disposition home or self-care (01) | LOC: WOU 10:50 | PROVIDERS: ATTEND Podiatrist Foot & Ankle Surgery | DX: E11.621 Type 2 diabetes mellitus with foot ulcer (principal); L97.412 Non-pressure chronic ulcer of right heel and midfoot with fat layer exposed; E11.42 Type 2 diabetes mellitus with diabetic polyneuropathy; E11.610 Type 2 diabetes mellitus with diabetic neuropathic arthropathy; Z79.4 Long term (current) use of insulin; L84 Corns and callosities; M20.41 Other hammer toe(s) (acquired), right foot | CPT/HCPCS: 11042 ==

== ENCOUNTER 2020-08-11 11:05 | Outpatient (CLI) | payer MEDICARE | END 2020-08-11 23:59 | disposition home or self-care (01) | LOC: WOU 11:05 | PROVIDERS: ATTEND Podiatrist Foot & Ankle Surgery | DX: E11.621 Type 2 diabetes mellitus with foot ulcer (principal); L97.412 Non-pressure chronic ulcer of right heel and midfoot with fat layer exposed; E11.610 Type 2 diabetes mellitus with diabetic neuropathic arthropathy; E11.42 Type 2 diabetes mellitus with diabetic polyneuropathy; Z79.4 Long term (current) use of insulin; L84 Corns and callosities; M20.41 Other hammer toe(s) (acquired), right foot | CPT/HCPCS: 15275; Q4186 ×2 ==

== ENCOUNTER 2020-08-18 11:05 | Outpatient (CLI) | payer MEDICARE | END 2020-08-18 23:59 | disposition home or self-care (01) | LOC: WOU 11:05 | PROVIDERS: ATTEND Podiatrist Foot & Ankle Surgery | DX: E11.621 Type 2 diabetes mellitus with foot ulcer (principal); L97.412 Non-pressure chronic ulcer of right heel and midfoot with fat layer exposed; E11.610 Type 2 diabetes mellitus with diabetic neuropathic arthropathy; M20.41 Other hammer toe(s) (acquired), right foot; L84 Corns and callosities; Z79.4 Long term (current) use of insulin | CPT/HCPCS: 11042; A6209 ==

== ENCOUNTER 2020-08-25 11:15 | Outpatient (CLI) | payer MEDICARE | END 2020-08-25 23:59 | disposition home or self-care (01) | LOC: WOU 11:15 | PROVIDERS: ATTEND Podiatrist Foot & Ankle Surgery | DX: E11.621 Type 2 diabetes mellitus with foot ulcer (principal); L97.412 Non-pressure chronic ulcer of right heel and midfoot with fat layer exposed; E11.610 Type 2 diabetes mellitus with diabetic neuropathic arthropathy; E11.42 Type 2 diabetes mellitus with diabetic polyneuropathy; Z79.4 Long term (current) use of insulin; L84 Corns and callosities; M20.41 Other hammer toe(s) (acquired), right foot | CPT/HCPCS: 11042 ==

== ENCOUNTER 2020-09-01 10:50 | Outpatient (CLI) | payer MEDICARE | END 2020-09-01 23:59 | disposition home or self-care (01) | LOC: WOU 10:50 | PROVIDERS: ATTEND Podiatrist Foot & Ankle Surgery | DX: E11.621 Type 2 diabetes mellitus with foot ulcer (principal); L97.412 Non-pressure chronic ulcer of right heel and midfoot with fat layer exposed; E11.42 Type 2 diabetes mellitus with diabetic polyneuropathy; E11.610 Type 2 diabetes mellitus with diabetic neuropathic arthropathy; Z79.4 Long term (current) use of insulin; M20.41 Other hammer toe(s) (acquired), right foot; L84 Corns and callosities; I10 Essential (primary) hypertension; Z87.891 Personal history of nicotine dependence | CPT/HCPCS: 11042; A6209 ==

== ENCOUNTER 2020-09-08 13:30 | Outpatient (CLI) | payer MEDICARE ==
[2020-09-08] MEDS ORDERED: MUPIROCIN 2% CREAM 15 GM TUBE TP ONE (14:07)
== END 2020-09-08 23:59 | disposition home or self-care (01) ==
LOC: WOU 13:30
PROVIDERS: ATTEND Podiatrist Foot & Ankle Surgery
DX: E11.621 Type 2 diabetes mellitus with foot ulcer (principal); L97.412 Non-pressure chronic ulcer of right heel and midfoot with fat layer exposed; E11.42 Type 2 diabetes mellitus with diabetic polyneuropathy; E11.610 Type 2 diabetes mellitus with diabetic neuropathic arthropathy; L84 Corns and callosities; M20.41 Other hammer toe(s) (acquired), right foot; I10 Essential (primary) hypertension; Z79.4 Long term (current) use of insulin
CPT/HCPCS: 11042

== ENCOUNTER 2020-09-18 10:55 | Outpatient (CLI) | payer MEDICARE ==
[2020-09-18] MEDS ORDERED: MUPIROCIN 2% CREAM 15 GM TUBE TP ONE (11:38)
== END 2020-09-18 23:59 | disposition home or self-care (01) ==
LOC: WOU 10:55
PROVIDERS: ATTEND Podiatrist Foot & Ankle Surgery
DX: E11.621 Type 2 diabetes mellitus with foot ulcer (principal); L97.412 Non-pressure chronic ulcer of right heel and midfoot with fat layer exposed; E11.42 Type 2 diabetes mellitus with diabetic polyneuropathy; E11.610 Type 2 diabetes mellitus with diabetic neuropathic arthropathy; Z79.4 Long term (current) use of insulin; M20.41 Other hammer toe(s) (acquired), right foot; L84 Corns and callosities; I10 Essential (primary) hypertension
CPT/HCPCS: 11042

== ENCOUNTER 2020-09-30 13:30 | Outpatient (CLI) | payer MEDICARE | END 2020-09-30 23:59 | disposition home or self-care (01) | LOC: WOU 13:30 | PROVIDERS: ATTEND Podiatrist Foot & Ankle Surgery | DX: T81.31XA Disruption of external operation (surgical) wound, not elsewhere classified, initial encounter (principal); E11.621 Type 2 diabetes mellitus with foot ulcer; L97.412 Non-pressure chronic ulcer of right heel and midfoot with fat layer exposed; E11.42 Type 2 diabetes mellitus with diabetic polyneuropathy; E11.610 Type 2 diabetes mellitus with diabetic neuropathic arthropathy; L84 Corns and callosities; Z98.42 Cataract extraction status, left eye; Z98.41 Cataract extraction status, right eye; I10 Essential (primary) hypertension; Z87.891 Personal history of nicotine dependence; Z79.4 Long term (current) use of insulin; Z79.899 Other long term (current) drug therapy; H40.9 Unspecified glaucoma | CPT/HCPCS: 11042 ==

== ENCOUNTER 2020-10-06 10:45 | Outpatient (CLI) | payer MEDICARE | END 2020-10-06 23:59 | disposition home or self-care (01) | LOC: WOU 10:45 | PROVIDERS: ATTEND Podiatrist Foot & Ankle Surgery | DX: E11.621 Type 2 diabetes mellitus with foot ulcer (principal); L97.412 Non-pressure chronic ulcer of right heel and midfoot with fat layer exposed; E11.42 Type 2 diabetes mellitus with diabetic polyneuropathy; L84 Corns and callosities; M20.41 Other hammer toe(s) (acquired), right foot; E11.610 Type 2 diabetes mellitus with diabetic neuropathic arthropathy; Z87.891 Personal history of nicotine dependence; Z98.42 Cataract extraction status, left eye; Z98.41 Cataract extraction status, right eye; T81.31XA Disruption of external operation (surgical) wound, not elsewhere classified, initial encounter; E11.319 Type 2 diabetes mellitus with unspecified diabetic retinopathy without macular edema; Z79.4 Long term (current) use of insulin; Z79.899 Other long term (current) drug therapy | CPT/HCPCS: 11042 ==

== ENCOUNTER 2020-10-16 10:20 | Outpatient (CLI) | payer MEDICARE | END 2020-10-16 23:59 | disposition home or self-care (01) | LOC: WOU 10:20 | PROVIDERS: ATTEND Podiatrist Foot & Ankle Surgery | DX: E11.621 Type 2 diabetes mellitus with foot ulcer (principal); L97.412 Non-pressure chronic ulcer of right heel and midfoot with fat layer exposed; E11.42 Type 2 diabetes mellitus with diabetic polyneuropathy; E11.610 Type 2 diabetes mellitus with diabetic neuropathic arthropathy; M20.41 Other hammer toe(s) (acquired), right foot; L84 Corns and callosities; T81.31XA Disruption of external operation (surgical) wound, not elsewhere classified, initial encounter; Z83.3 Family history of diabetes mellitus; E11.319 Type 2 diabetes mellitus with unspecified diabetic retinopathy without macular edema; Z88.8 Allergy status to other drugs, medicaments and biological substances; Z87.891 Personal history of nicotine dependence; Z98.42 Cataract extraction status, left eye; Z98.41 Cataract extraction status, right eye; Z79.4 Long term (current) use of insulin; Z79.899 Other long term (current) drug therapy | CPT/HCPCS: 11042; A6209 ==

== ENCOUNTER 2020-10-27 10:20 | Outpatient (CLI) | payer MEDICARE ==
[2020-10-27] MEDS ORDERED: MUPIROCIN 2% CREAM 15 GM TUBE TP ONE (10:48)
== END 2020-10-27 23:59 | disposition home or self-care (01) ==
LOC: WOU 10:20
PROVIDERS: ATTEND Podiatrist Foot & Ankle Surgery
DX: E11.621 Type 2 diabetes mellitus with foot ulcer (principal); L97.412 Non-pressure chronic ulcer of right heel and midfoot with fat layer exposed; E11.610 Type 2 diabetes mellitus with diabetic neuropathic arthropathy; E11.42 Type 2 diabetes mellitus with diabetic polyneuropathy; M20.41 Other hammer toe(s) (acquired), right foot; L84 Corns and callosities; Z79.4 Long term (current) use of insulin; I10 Essential (primary) hypertension; Z87.891 Personal history of nicotine dependence
CPT/HCPCS: 11042

== ENCOUNTER 2020-11-03 10:30 | Outpatient (CLI) | payer MEDICARE | END 2020-11-03 23:59 | disposition home or self-care (01) | LOC: WOU 10:30 | PROVIDERS: ATTEND Podiatrist Foot & Ankle Surgery | DX: E11.621 Type 2 diabetes mellitus with foot ulcer (principal); L97.412 Non-pressure chronic ulcer of right heel and midfoot with fat layer exposed; E11.610 Type 2 diabetes mellitus with diabetic neuropathic arthropathy; E11.42 Type 2 diabetes mellitus with diabetic polyneuropathy; L84 Corns and callosities; M20.41 Other hammer toe(s) (acquired), right foot; Z79.4 Long term (current) use of insulin | CPT/HCPCS: 11043 ==

== ENCOUNTER 2020-11-10 11:15 | Outpatient (CLI) | payer MEDICARE | END 2020-11-10 23:59 | disposition home or self-care (01) | LOC: WOU 11:15 | PROVIDERS: ATTEND Podiatrist Foot & Ankle Surgery | DX: E11.621 Type 2 diabetes mellitus with foot ulcer (principal); L97.412 Non-pressure chronic ulcer of right heel and midfoot with fat layer exposed; E11.610 Type 2 diabetes mellitus with diabetic neuropathic arthropathy; E11.42 Type 2 diabetes mellitus with diabetic polyneuropathy; Z79.4 Long term (current) use of insulin; L84 Corns and callosities; M20.41 Other hammer toe(s) (acquired), right foot; I10 Essential (primary) hypertension | CPT/HCPCS: 11042 ==

== ENCOUNTER 2020-11-17 10:30 | Outpatient (CLI) | payer MEDICARE | END 2020-11-17 23:59 | disposition home or self-care (01) | LOC: WOU 10:30 | PROVIDERS: ATTEND Podiatrist Foot & Ankle Surgery | DX: E11.621 Type 2 diabetes mellitus with foot ulcer (principal); L97.412 Non-pressure chronic ulcer of right heel and midfoot with fat layer exposed; E11.610 Type 2 diabetes mellitus with diabetic neuropathic arthropathy; E11.42 Type 2 diabetes mellitus with diabetic polyneuropathy; Z79.4 Long term (current) use of insulin; L84 Corns and callosities; M20.41 Other hammer toe(s) (acquired), right foot; I10 Essential (primary) hypertension | CPT/HCPCS: 11042 ==

== ENCOUNTER 2020-11-24 11:00 | Outpatient (CLI) | payer MEDICARE ==
[2020-11-24] MEDS ORDERED: CADEXOMER IODINE UD 5 GM TUBE ONE (11:50)
== END 2020-11-24 23:59 | disposition home or self-care (01) ==
LOC: WOU 11:00
PROVIDERS: ATTEND Podiatrist Foot & Ankle Surgery
DX: E11.621 Type 2 diabetes mellitus with foot ulcer (principal); L97.412 Non-pressure chronic ulcer of right heel and midfoot with fat layer exposed; E11.610 Type 2 diabetes mellitus with diabetic neuropathic arthropathy; E11.42 Type 2 diabetes mellitus with diabetic polyneuropathy; M20.41 Other hammer toe(s) (acquired), right foot; L84 Corns and callosities; Z79.4 Long term (current) use of insulin; I10 Essential (primary) hypertension; Z87.891 Personal history of nicotine dependence
CPT/HCPCS: 11042

== ENCOUNTER 2020-12-01 10:50 | Outpatient (CLI) | payer MEDICARE | END 2020-12-01 23:59 | disposition home or self-care (01) | LOC: WOU 10:50 | PROVIDERS: ATTEND Podiatrist Foot & Ankle Surgery | DX: E11.621 Type 2 diabetes mellitus with foot ulcer (principal); L97.412 Non-pressure chronic ulcer of right heel and midfoot with fat layer exposed; E11.610 Type 2 diabetes mellitus with diabetic neuropathic arthropathy; E11.42 Type 2 diabetes mellitus with diabetic polyneuropathy; Z79.4 Long term (current) use of insulin; M20.41 Other hammer toe(s) (acquired), right foot; L84 Corns and callosities | CPT/HCPCS: 11042; A6209 ==

== ENCOUNTER 2020-12-08 09:20 | Outpatient (CLI) | payer MEDICARE | END 2020-12-08 23:59 | disposition home or self-care (01) | LOC: WOU 09:20 | PROVIDERS: ATTEND Podiatrist Foot & Ankle Surgery | DX: E11.621 Type 2 diabetes mellitus with foot ulcer (principal); L97.412 Non-pressure chronic ulcer of right heel and midfoot with fat layer exposed; E11.610 Type 2 diabetes mellitus with diabetic neuropathic arthropathy; E11.42 Type 2 diabetes mellitus with diabetic polyneuropathy; Z79.4 Long term (current) use of insulin; L84 Corns and callosities; M20.41 Other hammer toe(s) (acquired), right foot | CPT/HCPCS: 11042; A6209 ×2 ==

== ENCOUNTER 2020-12-15 10:50 | Outpatient (CLI) | payer MEDICARE | END 2020-12-15 23:59 | disposition home or self-care (01) | LOC: WOU 10:50 | PROVIDERS: ATTEND Podiatrist Foot & Ankle Surgery | DX: E11.621 Type 2 diabetes mellitus with foot ulcer (principal); L97.412 Non-pressure chronic ulcer of right heel and midfoot with fat layer exposed; E11.42 Type 2 diabetes mellitus with diabetic polyneuropathy; E11.610 Type 2 diabetes mellitus with diabetic neuropathic arthropathy; Z79.4 Long term (current) use of insulin; M20.41 Other hammer toe(s) (acquired), right foot; L84 Corns and callosities | CPT/HCPCS: 11042 ==

== ENCOUNTER 2020-12-29 11:00 | Outpatient (CLI) | payer MEDICARE ==
[2020-12-29] MEDS ORDERED: SILVER NITRATE APPLICATOR 1 EA BOX ONE (11:15)
== END 2020-12-29 23:59 | disposition home or self-care (01) ==
LOC: WOU 11:00
PROVIDERS: ATTEND Podiatrist Foot & Ankle Surgery
DX: E11.621 Type 2 diabetes mellitus with foot ulcer (principal); L97.412 Non-pressure chronic ulcer of right heel and midfoot with fat layer exposed; E11.42 Type 2 diabetes mellitus with diabetic polyneuropathy; E11.610 Type 2 diabetes mellitus with diabetic neuropathic arthropathy; L84 Corns and callosities; M20.41 Other hammer toe(s) (acquired), right foot; Z79.4 Long term (current) use of insulin
CPT/HCPCS: 11042

== ENCOUNTER 2021-01-12 11:15 | Outpatient (CLI) | payer MEDICARE | END 2021-01-12 23:59 | disposition home or self-care (01) | LOC: WOU 11:15 | PROVIDERS: ATTEND Podiatrist Foot & Ankle Surgery | DX: E11.621 Type 2 diabetes mellitus with foot ulcer (principal); L97.412 Non-pressure chronic ulcer of right heel and midfoot with fat layer exposed; E11.42 Type 2 diabetes mellitus with diabetic polyneuropathy; E11.610 Type 2 diabetes mellitus with diabetic neuropathic arthropathy; Z79.4 Long term (current) use of insulin; L84 Corns and callosities; I10 Essential (primary) hypertension | CPT/HCPCS: 11042 ==

== ENCOUNTER 2021-04-06 11:30 | Outpatient (CLI) | payer MEDICARE ==
[2021-04-06] MEDS ORDERED: CADEXOMER IODINE UD 5 GM TUBE ONE (12:11)
[2021-04-06] MEDS ORDERED: ENOXAPARIN SODIUM 40 MG/0.4 ML DISP.SYRIN SQ ONE (13:11)
== END 2021-04-06 23:59 | disposition home or self-care (01) ==
LOC: WOU 11:30
PROVIDERS: ATTEND Podiatrist Foot & Ankle Surgery
DX: E11.621 Type 2 diabetes mellitus with foot ulcer (principal); L97.412 Non-pressure chronic ulcer of right heel and midfoot with fat layer exposed; E11.610 Type 2 diabetes mellitus with diabetic neuropathic arthropathy; L84 Corns and callosities; M20.41 Other hammer toe(s) (acquired), right foot; I10 Essential (primary) hypertension; Z79.4 Long term (current) use of insulin
CPT/HCPCS: 97597; J1650

== ENCOUNTER → 2021-08-03 | Outpatient (CLI) | payer MEDICARE ==
[~2021-08-03] MED LIST changes: +CADEXOMER IODINE UD 5 GM TUBE ONE; +CLOTRIMAZOLE 1% 15 GM TUBE TP ONE; -SILVER SULFADIAZINE CREAM 25 GM TUBE ONE
== END | disposition home or self-care (01) ==
LOC: WOU 10:00
PROVIDERS: ATTEND Podiatrist Foot & Ankle Surgery
DX: E11.621 Type 2 diabetes mellitus with foot ulcer (principal); L97.412 Non-pressure chronic ulcer of right heel and midfoot with fat layer exposed; E11.610 Type 2 diabetes mellitus with diabetic neuropathic arthropathy; B35.1 Tinea unguium; Z79.4 Long term (current) use of insulin; I10 Essential (primary) hypertension
CPT/HCPCS: 11042

== ENCOUNTER 2021-09-15 13:44 | Outpatient (CLI) | payer MEDICARE | END 2021-09-15 23:59 | disposition home or self-care (01) | LOC: WOU 13:44 | PROVIDERS: ATTEND Podiatrist Foot & Ankle Surgery | DX: E11.621 Type 2 diabetes mellitus with foot ulcer (principal); L97.412 Non-pressure chronic ulcer of right heel and midfoot with fat layer exposed; E11.610 Type 2 diabetes mellitus with diabetic neuropathic arthropathy; Z79.4 Long term (current) use of insulin; B35.1 Tinea unguium; S90.31XA Contusion of right foot, initial encounter; X58.XXXA Exposure to other specified factors, initial encounter; Y92.89 Other specified places as the place of occurrence of the external cause | CPT/HCPCS: G0463 ==

== ENCOUNTER 2021-10-01 10:07 | Outpatient (CLI) | payer MEDICARE ==
[2021-10-01] MEDS ORDERED: MUPIROCIN 2% CREAM 15 GM TUBE TP ONE (11:01)
== END 2021-10-01 23:59 | disposition home or self-care (01) ==
LOC: WOU 10:07
PROVIDERS: ATTEND Podiatrist Foot & Ankle Surgery
DX: E11.621 Type 2 diabetes mellitus with foot ulcer (principal); L97.412 Non-pressure chronic ulcer of right heel and midfoot with fat layer exposed; E11.610 Type 2 diabetes mellitus with diabetic neuropathic arthropathy; E11.42 Type 2 diabetes mellitus with diabetic polyneuropathy; Z79.4 Long term (current) use of insulin; I10 Essential (primary) hypertension; M20.41 Other hammer toe(s) (acquired), right foot
CPT/HCPCS: 11042

== ENCOUNTER 2021-10-06 13:05 | Outpatient (CLI) | payer MEDICARE | END 2021-10-06 23:59 | disposition home or self-care (01) | LOC: WOU 13:05 | PROVIDERS: ATTEND Podiatrist Foot & Ankle Surgery | DX: Z09 Encounter for follow-up examination after completed treatment for conditions other than malignant neoplasm (principal); Z86.31 Personal history of diabetic foot ulcer; E11.610 Type 2 diabetes mellitus with diabetic neuropathic arthropathy; I10 Essential (primary) hypertension; Z87.891 Personal history of nicotine dependence; Z98.42 Cataract extraction status, left eye; Z98.41 Cataract extraction status, right eye; M20.41 Other hammer toe(s) (acquired), right foot; E11.42 Type 2 diabetes mellitus with diabetic polyneuropathy | CPT/HCPCS: G0463 ==

== ENCOUNTER 2021-10-15 10:35 | Outpatient (CLI) | payer MEDICARE | END 2021-10-15 23:59 | disposition home or self-care (01) | LOC: WOU 10:35 | PROVIDERS: ATTEND Podiatrist Foot & Ankle Surgery | DX: Z09 Encounter for follow-up examination after completed treatment for conditions other than malignant neoplasm (principal); Z86.31 Personal history of diabetic foot ulcer; E11.42 Type 2 diabetes mellitus with diabetic polyneuropathy; L84 Corns and callosities; M20.41 Other hammer toe(s) (acquired), right foot; E11.610 Type 2 diabetes mellitus with diabetic neuropathic arthropathy; I10 Essential (primary) hypertension; H40.9 Unspecified glaucoma; Z98.42 Cataract extraction status, left eye; Z98.41 Cataract extraction status, right eye; Z87.891 Personal history of nicotine dependence; Z79.4 Long term (current) use of insulin; Z79.899 Other long term (current) drug therapy | CPT/HCPCS: G0463 ==

== ENCOUNTER 2021-10-29 10:20 | Outpatient (CLI) | payer MEDICARE ==
[2021-10-29] MEDS ORDERED: MUPIROCIN 2% CREAM 15 GM TUBE TP ONE (11:02)
== END 2021-10-29 23:59 | disposition home or self-care (01) ==
LOC: WOU 10:20
PROVIDERS: ATTEND Podiatrist Foot & Ankle Surgery
DX: Z09 Encounter for follow-up examination after completed treatment for conditions other than malignant neoplasm (principal); Z86.31 Personal history of diabetic foot ulcer; E11.42 Type 2 diabetes mellitus with diabetic polyneuropathy; E11.610 Type 2 diabetes mellitus with diabetic neuropathic arthropathy; Z79.84 Long term (current) use of oral hypoglycemic drugs; L84 Corns and callosities; M20.41 Other hammer toe(s) (acquired), right foot; I10 Essential (primary) hypertension
CPT/HCPCS: G0463

== ENCOUNTER 2022-01-04 11:02 | Outpatient (CLI) | payer MEDICARE | END 2022-01-04 23:59 | disposition home or self-care (01) | LOC: WOU 11:02 | PROVIDERS: ATTEND Podiatrist Foot & Ankle Surgery | DX: E11.621 Type 2 diabetes mellitus with foot ulcer (principal); L97.412 Non-pressure chronic ulcer of right heel and midfoot with fat layer exposed; E11.42 Type 2 diabetes mellitus with diabetic polyneuropathy; E11.610 Type 2 diabetes mellitus with diabetic neuropathic arthropathy; Z79.4 Long term (current) use of insulin; M20.41 Other hammer toe(s) (acquired), right foot; L84 Corns and callosities; I10 Essential (primary) hypertension; Z87.891 Personal history of nicotine dependence | CPT/HCPCS: 11042 ==

== ENCOUNTER 2022-01-11 10:33 | Outpatient (CLI) | payer MEDICARE | END 2022-01-11 23:59 | disposition home or self-care (01) | LOC: WOU 10:33 | PROVIDERS: ATTEND Podiatrist Foot & Ankle Surgery | DX: E11.610 Type 2 diabetes mellitus with diabetic neuropathic arthropathy (principal); E11.42 Type 2 diabetes mellitus with diabetic polyneuropathy; Z79.4 Long term (current) use of insulin; L84 Corns and callosities; M20.41 Other hammer toe(s) (acquired), right foot; I10 Essential (primary) hypertension | CPT/HCPCS: G0463 ==

== ENCOUNTER 2022-11-03 10:50 | Outpatient (CLI) | payer MEDICARE | END 2022-11-03 23:59 | disposition home or self-care (01) | LOC: MRI 10:50 | PROVIDERS: ATTEND Specialist | DX: M86.8X7 Other osteomyelitis, ankle and foot (principal); E11.621 Type 2 diabetes mellitus with foot ulcer | CPT/HCPCS: 73718-TC ==

== ENCOUNTER 2022-11-08 11:53 | Outpatient (CLI) | payer MEDICARE ==
[~2022-11-08 11:53] MED LIST changes: -CADEXOMER IODINE UD 5 GM TUBE ONE; -CLOTRIMAZOLE 1% 15 GM TUBE TP ONE; +SILVER SULFADIAZINE CREAM 25 GM TUBE ONE
== END 2022-11-08 23:59 | disposition home or self-care (01) ==
LOC: WOU 11:53
PROVIDERS: ATTEND Podiatrist Foot & Ankle Surgery
DX: E11.621 Type 2 diabetes mellitus with foot ulcer (principal); L97.513 Non-pressure chronic ulcer of other part of right foot with necrosis of muscle; E11.610 Type 2 diabetes mellitus with diabetic neuropathic arthropathy; E11.69 Type 2 diabetes mellitus with other specified complication; M86.171 Other acute osteomyelitis, right ankle and foot; Z79.4 Long term (current) use of insulin
CPT/HCPCS: 11043